=== PATIENT | female | born 2000 | race Hispanic/Latino ===

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

== ENCOUNTER 2022-01-30 21:39 | Emergency (ER) | payer BC, OTHER ==
[2022-01-30] MEDS ORDERED: ACETAMINOPHEN 500 MG TAB ONE (22:45)
[2022-01-30 22:53] LABS: Urine Bacteria 20-50 /HPF (<20); Urine Mucus 2+ /HPF (NONE SEEN); Urine RBC 20-50 /HPF (NONE SEEN)
--- NOTE | 2022-01-30 23:25 | ER ---
Nurse's Notes [facility] Name: Cheryl Sykes Age: 21 yrs Sex: Female : 2000 Arrival Date: 01/30/2022 Time: 21:42 Bed 8 Private MD: Diagnosis: UTI/ Urinary tract infection, site not specified;Coronavirus infection, unspecified Presentation: 01/30 21:59 Chief complaint: Patient states: Low pain with burning and pain with urination. tw5 Coronavirus screen: Vaccine status: Patient reports receiving the 2nd dose of the covid vaccine. Payvment. Ebola Screen: Patient negative for fever greater than or equal to 101.5 degrees Fahrenheit, and additional compatible Ebola Virus Disease symptoms Patient denies exposure to infectious person. Patient denies travel to an Ebola-affected area in the 21 days before illness onset. Initial Sepsis Screen: Does the patient meet any 2 criteria? HR > 90 bpm. Does the patient have a suspected source of infection? Yes: Dysuria/Frequency/Urgency/UTI. Risk Assessment: Do you want to hurt yourself or someone else? Patient reports no desire to harm self or others. Onset of symptoms was January 30, 2022. 21:59 Method Of Arrival: Ambulatory tw5 21:59 Acuity: [place] 4 tw5 Triage Assessment: 22:02 General: Appears in no apparent distress. Behavior is calm, cooperative, appropriate tw5 for age. Pain: Complains of pain in low back area Pain currently is 8 out of 10 on a pain scale. 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 - Social history:: Smoking status: Patient denies any tobacco usage or history of. Screenin:03 Abuse screen: Denies threats or abuse. Denies injuries from another. Nutritional tw5 screening: No deficits noted. Tuberculosis screening: No symptoms or risk factors identified. Fall Risk None identified. Assessment: 22:44 General: Appears in no apparent distress. comfortable, Behavior is calm, cooperative, ld1 appropriate for age. Pain: Complains of pain in face Pain does not radiate. Pain currently is 9 out of 10 on a pain scale. Quality of pain is described as pressure, throbbing. Neuro: Level of Consciousness is awake, alert, obeys commands, Oriented to person, place, time, situation, Appropriate for age. Cardiovascular: Capillary refill < 3 seconds Patient's skin is warm and dry. Respiratory: Airway is patent Respiratory effort is even, unlabored, Respiratory pattern is regular. GI: Abdomen is round non-distended. : No signs and/or symptoms were reported regarding the genitourinary system. EENT: No signs and/or symptoms were reported regarding the EENT system. Derm: No signs and/or symptoms reported regarding the dermatologic system. Musculoskeletal: No signs and/or symptoms reported regarding the musculoskeletal system. Vital Signs: 21:59 BP 136 / 80; Pulse 127; Resp 18; Temp 99.7(T); Pulse Ox 97% on R/A; Weight 60.78 kg; tw5 Height 5 ft. 2 in. (157.48 cm); Pain 8/10; 23:32 BP 132 / 77; Pulse 105; Resp 18; Pulse Ox 97% on R/A; kd3 21:59 Body Mass Index 24.51 (60.78 kg, 157.48 cm) tw5 ED Course: 21:42 Patient arrived in ED. bp1 21:56 Geneva Ellington FNP-C is PHCP. kb 21:56 Izaiah Sheikh MD is Attending Physician. kb 22:01 Triage completed. tw5 22:02 Arm band placed on right wrist. tw5 22:26 Leni Sherman, ESAU is Primary Nurse. ld1 22:26 Flu Sent. ld1 22:26 COVID-19 SARS RT PCR (Document "Date of Onset" if Symptomatic) Sent. ld1 22:33 Urine Microscopic Only Sent. eh3 22:44 Patient has correct armband on for positive identification. Placed in gown. Bed in low ld1 position. Call light in reach. Side rails up X2. ecologist on. Pulse ox on. NIBP on. Door closed. Noise minimized. Warm blanket given. 22:44 No provider procedures requiring assistance completed. Patient did not have IV access ld1 during this emergency room visit. 23:21 Notified Nurse Practitioner and/or Physician Sales Route Driver Helper of a critical lab result(s), kary Covid positive Geneva Ellington NEWSROOM INTERN notified. Administered Medications: 22:44 Drug: Tylenol 1000 mg Route: PO; ld1 23:32 Follow up: Response: No adverse reaction kd3 Medication: 22:44 VIS not applicable for this client. ld1 Outcome: 23:24 Discharge ordered by . kb 23:32 Discharged to home ambulatory. kd3 23:32 Condition: stable 23:32 Discharge instructions given to patient, family, Instructed on discharge instructions, follow up and referral plans. medication usage, Demonstrated understanding of instructions, follow-up care, medications, Prescriptions given X 1. 23:33 Patient left the ED. kd3 Addendum: 02/02/2022 08:31 Addendum: Culture Results: Positive urine culture. No further action required. Bacteria s s sensitive to prescribed antibiotic. Signatures: Geneva Ellington, OCULAR PATHOLOGIST-C OCULAR PATHOLOGIST-Linda Barnes RN RN bb Erika Erickson RN RN Dionne Olivo Lauren, RN RN ld1 Charlotte Rodriguez tw5 Waleska Gonzalez RN RN kd3 Dixie Banegas 3 Corrections: (The following items were deleted from the chart) 01/30 22:02 22:02 PMHx: None; tw5 tw5
--- NOTE | 2022-01-30 23:25 | EDPHYS ---
Physician Documentation [facility] Name: Cheryl Sykes Age: 21 yrs Sex: Female : 2000 Arrival Date: 01/30/2022 Time: 21:42 Bed 8 Private MD: ED Physician Izaiah Sheikh HPI: 01/30 23:22 This 21 yrs old Female presents to ER via Ambulatory with complaints of Low kb Back Pain, Pain With Urination. 23:22 The patient presents with pain that is acute. The symptoms are located in the low back. kb The pain does not radiate. The problem was sustained without known cause. Onset: The symptoms/episode began/occurred today. Modifying factors: The patient symptoms are alleviated by nothing, the patient symptoms are aggravated by nothing. Associated signs and symptoms: Pertinent positives: dysuria, headache, chills, sore throat. Severity of symptoms: At their worst the symptoms were mild, moderate, in the emergency department the symptoms are unchanged. The patient has not experienced similar symptoms in the past. The patient has not recently seen a physician. 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 - Social history:: Smoking status: Patient denies any tobacco usage or history of. ROS: 23:22 Abdomen/GI: Negative for abdominal pain, nausea, vomiting, diarrhea, and constipation. kb 23:22 Constitutional: Positive for chills, malaise. 23:22 ENT: Positive for sore throat. 23:22 Back: Positive for pain at rest, of the low back area. 23:22 : Positive for burning with urination. 23:22 Neuro: Positive for headache. 23:22 All other systems are negative. Exam: 23:22 Constitutional: This is a well developed, well nourished patient who is awake, alert, kb and in no acute distress. Head/Face: Normocephalic, atraumatic. ENT: Moist Mucous membranes Cardiovascular: Regular rate and rhythm with a normal S1 and S2. No gallops, murmurs, or rubs. No pulse deficits. Respiratory: Respirations even and unlabored. No increased work of breathing. Talking in full sentences Abdomen/GI: Soft, non-tender. No distention Back: No spinal tenderness. No costovertebral tenderness. Full range of motion. Skin: Warm, dry with normal turgor. Normal color. MS/ Extremity: Pulses equal, no cyanosis. Neurovascular intact. Full, normal range of motion. Neuro: Awake and alert, GCS 15, oriented to person, place, time, and situation. Moves all extremities. Normal gait. Psych: Awake, alert, with orientation to person, place and time. Behavior, mood, and affect are within normal limits. Vital Signs: 21:59 BP 136 / 80; Pulse 127; Resp 18; Temp 99.7(T); Pulse Ox 97% on R/A; Weight 60.78 kg; tw5 Height 5 ft. 2 in. (157.48 cm); Pain 8/10; 23:32 BP 132 / 77; Pulse 105; Resp 18; Pulse Ox 97% on R/A; kd3 21:59 Body Mass Index 24.51 (60.78 kg, 157.48 cm) tw5 MDM: 22:04 Patient medically screened. carmita 23:21 Data reviewed: vital signs, nurses notes. Data interpreted: Pulse oximetry: on room air kb is 97 %. Interpretation: normal. Counseling: I had a detailed discussion with the patient and/or guardian regarding: the historical points, exam findings, and any diagnostic results supporting the discharge/admit diagnosis, lab results, the need for outpatient follow up, a family practitioner, to return to the emergency department if symptoms worsen or persist or if there are any questions or concerns that arise at home. 01/30 22:01 Order name: Urine Microscopic Only; Complete Time: 22:56 kb 01/30 22:01 Order name: Flu; Complete Time: 23:07 kb 01/30 22:01 Order name: Urine Dipstick-Ancillary (obtain specimen); Complete Time: 22:33 kb 01/30 22:01 Order name: COVID-19 SARS RT PCR (Document "Date of Onset" if Symptomatic); Complete kb Time: 23:24 01/30 22:55 Order name: Urine Culture EDAR 01/30 22:01 Order name: Urine Test (obtain specimen); Complete Time: 22:33 kb Administered Medications: 22:44 Drug: Tylenol 1000 mg Route: PO; ld1 23:32 Follow up: Response: No adverse reaction kd3 Disposition Summary: 01/30/22 23:24 Discharge Ordered Location: Home kb Condition: Stable kb Diagnosis - UTI/ Urinary tract infection, site not specified kb - Coronavirus infection, unspecified kb Followup: kb - With: Emergency Department - When: As needed - Reason: Worsening of condition Followup: kb - With: Private Physician - When: 2 - 3 days - Reason: Recheck today's complaints, Continuance of care, Re-evaluation by your physician Discharge Instructions: - Discharge Summary Sheet kb - Urinary Tract Infection, Adult, [id number] kb - Viral Respiratory Infection, [id number] kb - COVID-19 kb Forms: - Medication Reconciliation Form kb - Thank You Letter kb - Antibiotic Education kb - Prescription Opioid Use kb Prescriptions: - Macrobid 100 mg Oral Capsule - take 1 capsule by ORAL route every 12 hours for 10 days; 20 capsule; Refills: kb 0, Product Selection Permitted Signatures: Dispatcher [employer] EDGeneva Felipe, SHIFT SUPERVISOR MELTING-C SHIFT SUPERVISOR MELTING-Ckb Izaiah Sheikh MD MD cha Dibbern, Lauren, RN RN ld1 Charlotte Rodriguez tw5 Waleska Gonzalez RN kd3 Corrections: (The following items were deleted from the chart) 22:02 22:02 PMHx: None; tw5 tw5
[2022-01-31 00:40] VITALS: TEMP 99.7; O2SAT 97
[2022-01-31 00:41] VITALS: BP 132/77
[2022-02-02 10:04] LABS: Urine Blood 3+ (Negative); Urine Glucose Negative (Negative); Urine Protein 2+ (Negative); Urine Specific Gravity 1.025 (1.005-1.030); Urine pH 6.5 (5.0-7.0)
== END 2022-01-30 23:33 | disposition home or self-care (01) ==
LOC: ER 21:39
DX: U07.1 COVID-19 (principal); N39.0 Urinary tract infection, site not specified
CPT/HCPCS: 87088; 87086; 87077; 87186; 87804 ×2; U0003; 81003; 81015; 99284